=== PATIENT | male | born 1955 | race Caucasian/White ===

== ENCOUNTER 2023-06-16 04:44 | Emergency (ER) | payer MEDICARE, BC ==
[~2023-06-16] VITALS: Ht 172.7 cm; Wt 104.3 kg
[~2023-06-16 04:44] MED LIST: ATOR40TA; CARV3.125; CYCL10; Doxycycline Hy100 MG; FURO40; LANS30EC; LEVSOD137; LISI5; OMEP20ER; OXYC5; POTCHL20ER; PROM25 PO; ZESTORETIC 20-121 EA; Zofran Odt4 MG SL
[2023-06-16 05:57] LABS: Source, Urine Foley catheter
[2023-06-16 05:59] LABS: Blood, Urine 5+ (Neg); Color, Urine Yellow (P-Yellow); Glucose Qualitative, Urine Neg (Neg); Ketones, Urine Neg (Neg); Leukocyte Esterase, Urine 3+ (Neg); Nitrite, Urine Pos (Neg); Protein, Urine 3+ (Neg); Specific Gravity, Urine 1.015 (1.003-1.022); Urobilinogen, Urine 2+ (Normal)
[2023-06-16 06:06] LABS: Bilirubin, Urine 1+ (Neg)
[2023-06-16 06:07] LABS: Appearance, Urine Hazy (Clear)
[2023-06-16 06:08] LABS: Bacteria Few /hpf; Mucus Light (0-Heavy); Red Blood Cells, Urine 25-50 /hpf (0-2); Squamous Epithelial Cells Rare /hpf (Few); White Blood Cells, Urine 50-100 /hpf (0-5)
[2023-06-16] MEDS ORDERED: SULTRIDS PO (06:31)
[2023-06-16] MEDS ORDERED: ONDA4ODT MM (06:31)
[2023-06-16 07:33] VITALS: BP 138/72
== END 2023-06-16 07:36 | disposition home or self-care (01) ==
LOC: ER 04:44
PROVIDERS: Emergency Medicine
DX: R33.9 Retention of urine, unspecified (principal); N30.91 Cystitis, unspecified with hematuria; I10 Essential (primary) hypertension; E03.9 Hypothyroidism, unspecified; E78.5 Hyperlipidemia, unspecified; K21.9 Gastro-esophageal reflux disease without esophagitis; Z79.899 Other long term (current) drug therapy; Z87.891 Personal history of nicotine dependence
CPT/HCPCS: 51702; 81001; 87086; 99283-25; A9270

== ENCOUNTER 2023-06-18 07:36 | Emergency (ER) | payer MEDICARE, BC ==
[~2023-06-18] VITALS: Ht 172.7 cm; Wt 104.3 kg
[~2023-06-18 07:36] MED LIST changes: +ONDA4ODT MM; +SULTRIDS PO
[2023-06-18] MEDS ORDERED: SYNTHROID150 MC1 PO (08:00)
[2023-06-18] MEDS ORDERED: ASPI81CH PO (08:00)
[2023-06-18] MEDS ORDERED: Lisinopril-Hct1 EAC4 PO (08:01)
[2023-06-18] MEDS ORDERED: LISI20 PO (08:03)
[2023-06-18] MEDS ORDERED: ATORVASTATIN CA40 M1 PO (08:04)
[2023-06-18] MEDS ORDERED: Carvedilol12.5 MG PO (08:04)
[2023-06-18] MEDS ORDERED: FESOTERODINE FUM4 MG PO (08:06)
[2023-06-18 09:32] VITALS: BP 139/62
== END 2023-06-18 09:33 | disposition home or self-care (01) ==
LOC: ER 07:36
DX: Z46.6 Encounter for fitting and adjustment of urinary device (principal); R33.9 Retention of urine, unspecified; Z79.82 Long term (current) use of aspirin; Z79.899 Other long term (current) drug therapy; I10 Essential (primary) hypertension; E03.9 Hypothyroidism, unspecified; E78.5 Hyperlipidemia, unspecified; K21.9 Gastro-esophageal reflux disease without esophagitis; Z87.891 Personal history of nicotine dependence
CPT/HCPCS: 99283

== ENCOUNTER 2023-12-16 03:08 | Day surgery (SDC) | payer MEDICARE, BC ==
[~2023-12-16 03:08] MED LIST changes: +ASPI81CH PO; +ATORVASTATIN CA40 M1 PO; +Carvedilol12.5 MG PO; +FESOTERODINE FUM4 MG PO; +LISI20 PO; +Lisinopril-Hct1 EAC4 PO; +SYNTHROID150 MC1 PO
== END 2023-12-16 22:44 | disposition home or self-care (01) ==
LOC: WOUND 03:08
DX: N30.41 Irradiation cystitis with hematuria (principal); I10 Essential (primary) hypertension; E03.9 Hypothyroidism, unspecified; I25.10 Atherosclerotic heart disease of native coronary artery without angina pectoris
CPT/HCPCS: G0463

== ENCOUNTER 2024-01-22 04:11 | Day surgery (SDC) | payer MEDICARE | END 2024-01-23 00:48 | disposition home or self-care (01) | LOC: HBO 04:11 | DX: N30.41 Irradiation cystitis with hematuria (principal) | CPT/HCPCS: G0277; G0463 ==

== ENCOUNTER 2024-01-26 03:41 | Day surgery (SDC) | payer MEDICARE | END 2024-01-26 23:25 | disposition home or self-care (01) | LOC: HBO 03:41 | DX: N30.41 Irradiation cystitis with hematuria (principal) | CPT/HCPCS: G0277 ==

== ENCOUNTER 2024-01-27 02:46 | Day surgery (SDC) | payer MEDICARE | END 2024-01-27 22:58 | disposition home or self-care (01) | LOC: HBO 02:46 | DX: N30.41 Irradiation cystitis with hematuria (principal) | CPT/HCPCS: G0277 ==

== ENCOUNTER 2024-02-09 00:48 | Day surgery (SDC) | payer MEDICARE | END 2024-02-09 22:45 | disposition home or self-care (01) | LOC: HBO 00:48 | DX: N30.41 Irradiation cystitis with hematuria (principal) | CPT/HCPCS: G0277 ==

== ENCOUNTER 2024-02-12 03:15 | Day surgery (SDC) | payer MEDICARE | END 2024-02-12 23:13 | disposition home or self-care (01) | LOC: HBO 03:15 | DX: N30.41 Irradiation cystitis with hematuria (principal) | CPT/HCPCS: G0277 ==

== ENCOUNTER 2024-02-15 02:40 | Day surgery (SDC) | payer MEDICARE | END 2024-02-15 23:30 | disposition home or self-care (01) | LOC: HBO 02:40 | DX: N30.41 Irradiation cystitis with hematuria (principal) | CPT/HCPCS: G0277 ==

== ENCOUNTER 2024-02-16 00:57 | Day surgery (SDC) | payer MEDICARE | END 2024-02-16 23:07 | disposition home or self-care (01) | LOC: HBO 00:57 | DX: N30.41 Irradiation cystitis with hematuria (principal) | CPT/HCPCS: G0277 ==

== ENCOUNTER 2024-02-17 03:11 | Day surgery (SDC) | payer MEDICARE | END 2024-02-17 23:07 | disposition home or self-care (01) | LOC: HBO 03:11 | DX: N30.41 Irradiation cystitis with hematuria (principal) | CPT/HCPCS: G0277 ==

== ENCOUNTER 2024-02-19 02:23 | Day surgery (SDC) | payer MEDICARE | END 2024-02-19 23:16 | disposition home or self-care (01) | LOC: HBO 02:23 | DX: N30.41 Irradiation cystitis with hematuria (principal) | CPT/HCPCS: G0277 ==

== ENCOUNTER 2024-02-22 01:52 | Day surgery (SDC) | payer MEDICARE | END 2024-02-22 04:37 | disposition home or self-care (01) | LOC: HBO 01:52 | DX: N30.41 Irradiation cystitis with hematuria (principal) | CPT/HCPCS: G0277 ==

== ENCOUNTER 2024-02-23 08:00 | Day surgery (SDC) | payer MEDICARE | END 2024-02-24 22:59 | disposition home or self-care (01) | LOC: HBO 08:00 | DX: N30.41 Irradiation cystitis with hematuria (principal) | CPT/HCPCS: G0277 ==

== ENCOUNTER 2024-02-24 01:58 | Day surgery (SDC) | payer MEDICARE | END 2024-02-24 22:59 | disposition home or self-care (01) | LOC: HBO 01:58 | DX: N30.41 Irradiation cystitis with hematuria (principal) | CPT/HCPCS: G0277 ==

== ENCOUNTER 2024-02-25 02:54 | Day surgery (SDC) | payer MEDICARE | END 2024-02-25 23:10 | disposition home or self-care (01) | LOC: HBO 02:54 | DX: N30.41 Irradiation cystitis with hematuria (principal) | CPT/HCPCS: G0277 ==

== ENCOUNTER 2024-02-29 03:20 | Day surgery (SDC) | payer MEDICARE | END 2024-02-29 23:17 | disposition home or self-care (01) | LOC: HBO 03:20 | DX: N30.41 Irradiation cystitis with hematuria (principal) | CPT/HCPCS: G0277 ==

== ENCOUNTER 2024-03-02 02:22 | Day surgery (SDC) | payer MEDICARE | END 2024-03-04 22:53 | disposition home or self-care (01) | LOC: HBO 02:22 | DX: N30.41 Irradiation cystitis with hematuria (principal) | CPT/HCPCS: G0277 ==

== ENCOUNTER 2024-03-03 02:27 | Day surgery (SDC) | payer MEDICARE | END 2024-03-04 22:53 | disposition home or self-care (01) | LOC: HBO 02:27 | DX: N30.41 Irradiation cystitis with hematuria (principal) | CPT/HCPCS: G0277 ==

== ENCOUNTER 2024-03-05 23:00 | Emergency (ER) | payer MEDICARE, BC ==
[~2024-03-05] VITALS: Ht 172.7 cm; Wt 99.8 kg
[2024-03-05] MEDS ORDERED: Ketorolac Tromethamine 30mg Vial IM ONE (23:40)
[2024-03-05 23:42] LABS: Source, Urine Clean Catch
[2024-03-05 23:44] LABS: Bilirubin, Urine Neg (Neg); Blood, Urine 5+ (Neg); Glucose Qualitative, Urine Neg (Neg); Ketones, Urine Neg (Neg); Leukocyte Esterase, Urine 3+ (Neg); Nitrite, Urine Pos (Neg); Protein, Urine 4+ (Neg); Urobilinogen, Urine NORM (Normal); pH, Urine 6.5 (5.0-8.0)
[2024-03-06 00:11] LABS: Appearance, Urine Hazy (Clear); Bacteria Mod /hpf; Color, Urine Red (P-Yellow); Red Blood Cells, Urine TNTC /hpf (0-2); Squamous Epithelial Cells Not Seen /hpf (Few); White Blood Cells, Urine 50-100 /hpf (0-5)
[2024-03-06] MEDS ORDERED: CEPH500 PO (00:27)
[2024-03-06] MEDS ORDERED: CefTRIAXone 1000 MG Vial IM ONE (00:30)
[2024-03-06 00:50] VITALS: BP 117/67
== END 2024-03-06 00:50 | disposition home or self-care (01) ==
LOC: ER 23:00
PROVIDERS: Physician Assistant
DX: N39.0 Urinary tract infection, site not specified (principal); Z79.899 Other long term (current) drug therapy; Z79.82 Long term (current) use of aspirin; I10 Essential (primary) hypertension; E78.5 Hyperlipidemia, unspecified; K21.9 Gastro-esophageal reflux disease without esophagitis
CPT/HCPCS: 51798; 81001; 87086; 96372; 99283-25; A9270; J0696; J1885

== ENCOUNTER 2024-03-08 03:36 | Day surgery (SDC) | payer MEDICARE ==
[~2024-03-08 03:36] MED LIST changes: +CEPH500 PO
== END 2024-03-08 22:47 | disposition home or self-care (01) ==
LOC: HBO 03:36
DX: N30.41 Irradiation cystitis with hematuria (principal)
CPT/HCPCS: G0277

== ENCOUNTER 2024-03-10 07:51 | Day surgery (SDC) | payer MEDICARE | END 2024-03-10 22:56 | disposition home or self-care (01) | LOC: HBO 07:51 | DX: N30.41 Irradiation cystitis with hematuria (principal) | CPT/HCPCS: G0277 ==

== ENCOUNTER 2024-03-11 01:56 | Day surgery (SDC) | payer MEDICARE | END 2024-03-11 23:01 | disposition home or self-care (01) | LOC: HBO 01:56 | DX: N30.41 Irradiation cystitis with hematuria (principal) | CPT/HCPCS: G0277 ==

== ENCOUNTER 2024-03-15 01:51 | Day surgery (SDC) | payer MEDICARE | END 2024-03-15 23:17 | disposition home or self-care (01) | LOC: HBO 01:51 | DX: N30.41 Irradiation cystitis with hematuria (principal) | CPT/HCPCS: G0277 ==

== ENCOUNTER 2024-03-15 07:51 | Day surgery (SDC) | payer MEDICARE | END 2024-03-15 23:18 | disposition home or self-care (01) | LOC: WOUND 07:51 | DX: N30.41 Irradiation cystitis with hematuria (principal); I10 Essential (primary) hypertension; I25.10 Atherosclerotic heart disease of native coronary artery without angina pectoris; E03.9 Hypothyroidism, unspecified | CPT/HCPCS: G0463 ==

== ENCOUNTER 2024-03-16 02:34 | Day surgery (SDC) | payer MEDICARE | END 2024-03-16 22:59 | disposition home or self-care (01) | LOC: HBO 02:34 | DX: N30.41 Irradiation cystitis with hematuria (principal) | CPT/HCPCS: G0277 ==

== ENCOUNTER 2024-03-17 02:52 | Day surgery (SDC) | payer MEDICARE ==
[2024-03-20] MEDS ORDERED: CEFD300 PO (01:03)
== END 2024-03-17 23:01 | disposition home or self-care (01) ==
LOC: HBO 02:52
DX: N30.41 Irradiation cystitis with hematuria (principal)
CPT/HCPCS: G0277

== ENCOUNTER 2024-03-18 02:52 | Day surgery (SDC) | payer MEDICARE ==
[2024-03-20] MEDS ORDERED: CEFD300 PO (01:03)
== END 2024-03-18 23:04 | disposition home or self-care (01) ==
LOC: HBO 02:52
DX: N30.41 Irradiation cystitis with hematuria (principal)
CPT/HCPCS: G0277

== ENCOUNTER 2024-04-05 03:46 | Day surgery (SDC) | payer MEDICARE ==
[~2024-04-05 03:46] MED LIST changes: +CEFD300 PO
== END 2024-04-05 23:24 | disposition home or self-care (01) ==
LOC: HBO 03:46
DX: N30.41 Irradiation cystitis with hematuria (principal)
CPT/HCPCS: G0277

== ENCOUNTER 2024-04-06 05:30 | Day surgery (SDC) | payer MEDICARE | END 2024-04-06 23:12 | disposition home or self-care (01) | LOC: HBO 05:30 | DX: N30.41 Irradiation cystitis with hematuria (principal) | CPT/HCPCS: G0277 ==

== ENCOUNTER 2024-04-07 03:04 | Day surgery (SDC) | payer MEDICARE | END 2024-04-07 22:45 | disposition home or self-care (01) | LOC: HBO | DX: N30.41 Irradiation cystitis with hematuria (principal) | CPT/HCPCS: G0277 ==

== ENCOUNTER 2024-04-08 03:23 | Day surgery (SDC) | payer MEDICARE | END 2024-04-08 23:47 | disposition home or self-care (01) | LOC: HBO | DX: N30.41 Irradiation cystitis with hematuria (principal) | CPT/HCPCS: G0277 ==

== ENCOUNTER 2024-04-19 01:35 | Day surgery (SDC) | payer MEDICARE | END 2024-04-19 23:00 | disposition home or self-care (01) | LOC: HBO 01:35 | DX: N30.41 Irradiation cystitis with hematuria (principal); I10 Essential (primary) hypertension; I25.10 Atherosclerotic heart disease of native coronary artery without angina pectoris; E03.9 Hypothyroidism, unspecified | CPT/HCPCS: G0277; G0463 ==

== ENCOUNTER 2024-04-20 03:58 | Day surgery (SDC) | payer MEDICARE | END 2024-04-20 22:48 | disposition home or self-care (01) | LOC: HBO 03:58 | DX: N30.41 Irradiation cystitis with hematuria (principal) | CPT/HCPCS: G0277 ==

== ENCOUNTER 2024-04-21 01:09 | Day surgery (SDC) | payer MEDICARE | END 2024-04-21 22:49 | disposition home or self-care (01) | LOC: HBO 01:09 | DX: N30.41 Irradiation cystitis with hematuria (principal) | CPT/HCPCS: G0277 ==

== ENCOUNTER 2024-04-22 01:59 | Day surgery (SDC) | payer MEDICARE | END 2024-04-22 23:31 | disposition home or self-care (01) | LOC: HBO 01:59 | DX: N30.41 Irradiation cystitis with hematuria (principal) | CPT/HCPCS: G0277 ==

== ENCOUNTER 2024-08-12 11:32 | Emergency (ER) | payer MEDICARE ==
[~2024-08-12] VITALS: Ht 172.7 cm; Wt 97.5 kg
[2024-08-12 11:41] VITALS: BP 144/78
[2024-08-12] MEDS ORDERED: Dexamethasone Sod Phos 10 MG/ML 1ML VIAL PO ONE (15:35)
[2024-08-12] MEDS ORDERED: Ketorolac Tromethamine 30mg Vial IM ONE (15:35)
[2024-08-12] MEDS ORDERED: METPRE4DP PO (15:40)
[2024-08-12] MEDS ORDERED: IBUP800 PO (15:40)
[2024-08-15] MEDS ORDERED: METPRE4DP PO (08:20)
== END 2024-08-12 16:00 | disposition home or self-care (01) ==
LOC: ER 11:32
DX: M54.16 Radiculopathy, lumbar region (principal); I10 Essential (primary) hypertension; E03.9 Hypothyroidism, unspecified; K21.9 Gastro-esophageal reflux disease without esophagitis; E78.5 Hyperlipidemia, unspecified; Z87.891 Personal history of nicotine dependence; Z79.899 Other long term (current) drug therapy; Z79.82 Long term (current) use of aspirin
CPT/HCPCS: 72100; 96372; 99283-25; J1100; J1885